=== PATIENT | female | born 1970 | race Caucasian/White ===

== ENCOUNTER 2017-12-02 07:17 | Emergency (ER) | payer OTHER, SELFPAY ==
[2017-12-02 07:18] VITALS: BP 149/85; PULSE 77; RESP 16; TEMP 36.6; O2SAT 100; BMI 33.2
--- NOTE | 2017-12-02 07:35 | ED.DCSUM_ITS ---
- ER Visit Summary Date of Service: 12/02/17 Chief Complaint: Vaginal bleeding History of Present Illness: The patient is a 47 F with a history of endometriosis and irregular menses. Patient states she has been bleeding for the past 2 weeks. Bleeding had tapered to just spotting for 2 days, but increased again yesterday to bleeding heavily and passing large clots. Patient believes she is gone through approximate 6 pads in the past 24 hours. She is having some lower abdominal cramping. She is scheduled to see Dr. Malone for [employer] follow-up on the . Past surgical history is significant for 2 C-sections and 2 prior laparoscopies for endometriosis. Physical Examination: Vital signs are unremarkable. Patient sitting upright in bed no acute distress. Head neck examination is normal. Heart is regular rate and rhythm. Lung sounds are clear. Abdomen is soft with no focal tenderness. Active bowel sounds are noted. Test Results: CBC reveals a hemoglobin 11.8. Chemistry studies normal. Serum test is negative. Transvaginal ultrasound shows multiple uterine fibroids. Sonographically normal endometrium is noted at 9 mm. There is a simple 3.3 similar left ovarian cyst. Emergency Department Course and Treatment: Patient was given Toradol and IV fluids. I spoke with Dr. Gooden, on-call for Dr. Malone. Patient is to receive Aygestin every 6 hours today and tomorrow. She will then follow-up with Dr. Malone on Monday. Treatment Plan: [] Disposition: Discharge Impression: Menorrhagia This note was generated with [employer] dictation software. It may contain incorrect words, spelling, and punctuation that were not noted in review of the chart prior to signing ED Disposition - Plan for ED Patient: Chief Complaint: Vag Bleeding Referrals: Jenna Atwood MD [Primary Care Provider] -
[2017-12-02 08:15] LABS: Absolute Lymphocyte Count 1.96 X10^3/ul (0.83-4.51); Basophil# 0.03 X10^3/uL; Basophil% 0.4 % (0-1); Eosinophil# 0.12 X10^3/uL; Eosinophils% 1.8 % (0-5); Hematocrit 36.4 % (37-47); Hemoglobin 11.8 g/dl (12.0-15.0); Lymphocyte # 1.96 X10^3/ul (4.0); Lymphocyte % 29.3 % (19-41); Mean Corp Hgb Conc 32.4 g/gl (32-36); Mean Corpuscular Hgb 29.9 pg (27.0-32.0); Mean Corpuscular Volume 92.4 fL (81-99); Mean Platelet Vol. 9.1 fl (6.2-12.0); Neutrophil # 3.99 X10^3/uL (2.7-7.7); Neutrophil % 59.5 % (47-70); Platelet Count 363 K/mm3 (150-450); RBC Distribution Width CV 13.3 % (11.6-14.6); RBC Distribution Width SD 44.5 fl (35.1-43.9); Red Blood Count 3.94 M/mm3 (4.2-5.4); White Blood Count 6.7 K/mm3 (4.4-11.0)
[2017-12-02 08:21] LABS: POSITIVE COUNT NO; POSITIVE DIFFERENTIAL NO; POSITIVE MORPHOLOGY NO
[2017-12-02 08:22] LABS: Anion Gap 8 (5-15); BUN 10 mg/dL (7-18); Calcium,Total 8.8 mg/dL (8.5-10.1); Chloride 107 mmol/L (98-107); Creatinine, Serum 0.66 mg/dL (0.55-1.02); EST Glomerular Filtration Rate 101 mL/min (>60); Est Glom Filt Rate - Afr Amer 122 mL/min (>60); Glucose 90 mg/dL (74-106); Potassium 3.6 mmol/L (3.5-5.1); Sodium Level 142 mmol/L (136-145)
[2017-12-02 08:36] LABS: Pregnancy, Serum, hCG Quali. NEGATIVE Negative (0-9 Nonpreg)
[2017-12-02] MEDS: 0.9% Normal Saline 1,000 ML 1000 ML IV (08:39)
[2017-12-02] MEDS: Ketorolac 30 MG/ML Syringe IV (08:39)
--- NOTE | 2017-12-02 09:27 | ED.DEP ---
ED Disposition - Plan for ED Patient: Disposition: Home or Assisted Living Chief Complaint: Vag Bleeding Instructions: ED Bleeding Menstrual Heavy Prescriptions: Norethindrone [Aygestin] 5 mg PO Q6H 2 Days #8 tablet Referrals: Diana Franoc MD [STAFF PHYSICIAN] - Keep Shauna appointment
[2017-12-02 09:44] VITALS: BP 128/78; PULSE 82; RESP 15; O2SAT 97
== END 2017-12-02 09:45 | disposition home or self-care (01) ==
PROVIDERS: Emergency Provider Emergency Medicine
DX: N92.0 Excessive and frequent menstruation with regular cycle (principal); D25.9 Leiomyoma of uterus, unspecified; N83.292 Other ovarian cyst, left side
CPT/HCPCS: 76830; 80048; 84703; 85025; 96361; 96374; 99284; J7030; A4216

== ENCOUNTER 2018-07-12 05:24 | Day surgery (SDC) | payer SELFPAY, OTHER ==
--- NOTE | 2018-07-09 07:59 | PCM.HP.BLA ---
History and Physical Date of Admission: 07/12/18 Lizett Moulton is a 47 year old female who presents for AUB. Pt was scheduled for EMB but due to stenotic cervix unable to obtain. Options for mgmt were reviewed. Pt would like to proceed with Hysteroscopy, D&C, Shelly ABLATION. Pt reports bleeding is regular every months and bleeds for 4-5 days but will pass large 50 cent piece size clots. Since starting herbal supplement has had some improvement but they are still heavy. Pt denies other concerns today. ? PAST?MEDICAL?HISTORY PAST MEDICAL HISTORY Diagnosis Date ? Endometriosis, site unspecified ? ? Endometriosis ? PAST?SURGICAL?HISTORY PAST SURGICAL HISTORY Procedure Laterality Date ? DELIVERY ONLY ? ? ? , low cervical ? DELIVERY ONLY ? ? ? , low cervical ? PAST SURGICAL HISTORY OF ? ? ? For the endometriosis ? REMOVAL OF TONSILS,<12 Y/O ? 1997 ? Tonsillectomy ? TUBAL LIGATION ? ? ? FAMILY?HISTORY FAMILY HISTORY Problem Relation Age of Onset ? None Father ? ? None Mother ? ? SOCIAL?HISTORY Social History Socioeconomic History Marital status: Spouse name: Not on file Number of children: 3 Years of education: Not on file Highest education level: Not on file Social Needs Financial resource strain: Not on file Food insecurity - worry: Not on file Food insecurity - inability: Not on file Transportation needs - medical: Not on file Transportation needs - non-medical: Not on file Occupational History Not on file Tobacco Use Smoking status: Never Smoker Smokeless tobacco: Never Used Substance and Sexual Activity Alcohol use: No Drug use: No Sexual activity: Yes Partners: Male control/protection: Other, None Other Topics Concerns: Not on file Social History Narrative Not on file ? CURRENT?MEDICATIONS ? Current Outpatient Medications: miSOPROStol (CYTOTEC) 200 mcg tablet Take two tablets PO night before procedure and two tablets morning of procedure ibuprofen (MOTRIN) 600 mg tablet Take 1 tablet by mouth every 6 hours as needed. FOR PAIN. HERBAL DRUGS ORAL Take by mouth. fibrablend miSOPROStol (CYTOTEC) 200 mcg tablet Take two tablets PO night before procedure and two tablets morning of procedure multivitamins(DAILY MULTIVITAMIN TAB) Take one(1) tablet daily. ? No current facility-administered medications for this visit. Allergies As of Date: 06/12/2018 Allergen Noted Reaction ENVIRONMENTAL [OTHER] 08/29/2007 ? Fully Assessed 06/12/2018 ? ? REVIEW OF SYSTEMS Abdomen: no pain Bladder: no dysuria .. Expanded ROS: GENERAL: Negative for fever Allergies and current medication updated:Yes ? EXAM: BP 120/74 Wt 168 lb (76.2kg) LMP 06/12/2018 GENERAL: pleasant, female in no apparent distress HEENT: Normocephalic, atraumatic, mucus membranes moist and no lesions NECK: Supple, full range of motion, no adenopathy and thyroid normal DERMATOLOGY: Normal, without lesions, non-icteric and non-hirsute CARDIAC: regular rate and rhythm CHEST: Normal inspiratory effort PELVIC: external genitalia normal, normal Bartholin's glands, urethra, [place]'s glands, no vulvar lesions, no cervical lesions, good vaginal support, physiologic discharge present, normal appearing perineal body and perianal region NEURO: alert and oriented x3,exam grossly non-focal EXTREMITIES: normal ULTRASOUND REVIEWED: uterus 10.4cm- three small fibroids all less than 2.5cm. No endometrial lesions. ? ASSESSMENT AND PLAN: Encounter Diagnosis ? ? ICD-10-CM ? 1. Pre-op testing Z01.818 HCG QUAL UR B/O 2. Abnormal uterine bleeding (AUB) N93.9 ENDOMETRIAL BIOPSY ? 3. MGMT options reviewed- would like to proceed with Hysteroscopy, D&C, Shelly ablation. PRE OP today done- Consent signed. 4. Pt has been counseled on risks/benefits and alternatives of surgery including but not limited to anesthesia, bleeding, infection, injury to pelvic structures including bowel, bladder, ureters and vessels. Pt wishes to proceed with surgery at this time. 5. Pt understands if Hyperplasia on D&C specimen will need to proceed with hysterectomy ? Diana Franco MD ?
[2018-07-12] VITALS (9 sets, daily range): BP systolic 96–133; BP diastolic 63–82; PULSE 65–77; RESP 14–16; TEMP 36.2–36.7; O2SAT 95–99; BMI 34.3
[2018-07-12 06:12] LABS: Hematocrit 39.1 % (37-47); Hemoglobin 12.6 g/dl (12.0-15.0); Mean Corp Hgb Conc 32.2 g/gl (32-36); Mean Corpuscular Hgb 29.4 pg (27.0-32.0); Mean Corpuscular Volume 91.1 fL (81-99); Mean Platelet Vol. 9.5 fl (6.2-12.0); Platelet Count 370 K/mm3 (150-450); RBC Distribution Width CV 13.5 % (11.6-14.6); RBC Distribution Width SD 44.1 fl (35.1-43.9); Red Blood Count 4.29 M/mm3 (4.2-5.4); White Blood Count 6.2 K/mm3 (4.4-11.0)
[2018-07-12 06:18] LABS: Scan Indicated on CBC? Y/N NO
--- NOTE | 2018-07-12 07:30 | EMB_PTH ---
PATIENT: ARMAND SHARPE LOC: [facility] [place] U#:[id number] AGE/SX: 47/F ROOM: RE07/12/[address]: Dr. Diana Franco, MDDOB: 1970 BED: DIS: 07/12/2018 SPEC #: [id number] RECD: 07/12/18 11:09 STATUS: TUTU RERosenda #: [id number] PAOLA: 07/12/18 07:[address]: Diana Franco DEPT: SURGICAL PATHOLOGY RECD BY: Chris Carpenter ENTERED: 07/12/18 13:00 SP TYPE: ENDOM BX/C OTHR DR: Dr. Jenna Atwood MD Tissues: Endometrium, NOS Procedures: Surgery Specimen Level IV HEADER OPERATION: Hysteroscopy, D & C, Shelly PRE-OP DIAGNOSIS: Abnormal uterine bleeding TISSUE SUBMITTED: Endometrial curettings MICROSCOPIC DIAGNOSIS Endometrial curettings: Endometrial polyp with simple and focal complex glandular pattern, negative for atypia. Weakly proliferative endometrium with glandular and stromal breakdown, eosinophilic syncytial change and tubal metaplasia. CE:tricia 07/13/18 MICROSCOPIC DESCRIPTION Slides are reviewed. GROSS DESCRIPTION Received in fixative is one container labeled with the patient's name and designated endometrial curettings. The specimen consists of multiple irregular fragments of reddish-pink soft tissue that in aggregate measure 1 x 1.5 x 0.5 cm. The specimen is totally submitted in two cassettes. / CE:tricia 07/12/18 TC:1 CPT: 12921
--- NOTE | 2018-07-12 07:30 | DCINST_ITS ---
Discharge Diet: No Restrictions Discharge Activity: Return to Normal Activity, May Shower, May Take a Tub Bath - in 2 weeks. May resume sexual activity in: 2 weeks Call your doctor if you observe: Fever of 101 or Higher, Using more than one pad per hour Allergies/Adverse Reactions: Allergies No Known Allergies Allergy (Verified 07/05/18 11:02) Medications to take at Discharge Multivitamin [Daily Multiple Vitamin] 1 each PO DAILY 12/02/17 Fibroblend 2 cap PO DAILY 07/05/18 Primary Care Physician: Jenna Atwood MD [Primary Care Provider] - Test Results: Test results from this visit will be discussed in further detail at your follow- up appointment, if applicable. Please Follow Up With: Diana Franco MD When: as scheduled 2 weeks
--- NOTE | 2018-07-12 08:03 | PCM.OPRPT ---
Report of Operation Date of Procedure: 07/12/18 Pre-Operative Diagnosis: AUB Post-Operative Diagnosis: AUB Surgery/Procedure Performed:: Hysteroscopy, D&C, Shelly Ablation Description of Surgical Findings:: Abundant Endometrial tissue. Possible Endometrial polyp. Type of Anesthesia:: MAC Specimen's removed: endometrial curettings Drains: none Estimated Blood Loss (mL): 5 Fluids Replaced: 800 Description of Procedure: After informed consent was obtained patient taken to the operating room she is placed in supine position she is given anesthesia simply self insert she is prepped draped normal sterile fashion. Bladder was drained prior to the start of the procedure. At this time the weighted speculum was placed the posterior fornix of the vagina then a single-tooth tenaculum was used to grasp the anterior lip of the cervix. At this time the uterus was sounded to approximately 8 cm the endocervical canal sounded to 3cm. Next cervix was dilated in incremental fashion. Once adequate dilatation was achieved the hysteroscope was inserted using normal saline as distention medium. On hysteroscopy there was abundant endometrial tissue and possible EM polyp. Difficult to see tubal ostia due to excess tissue but both cornua were noted At this time sharp curettage was performed which yielded large amount of endometrial tissue. tissue will be sent to pathology for evaluation. At this time the Shelly device was opened. The Shelly was set at 5 cm. The device was activated. Prior to activation the field test was performed and cavity was intact. The device was then fired and activated for 120 seconds. Once the 120 seconds was completed the device was removed intact and the tenaculum was removed. Good hemostasis was appreciated. Weighted speculum was removed. Vaginal sweep was performed is negative. There were no complications. Anticipated normal postoperative course for this patient. Instrument and lap count were correct ?2. Grafts/Implants Used: none - Complications none - Admit VTE Documentation VTE Present on Admission: Yes VTE Mechan Device Prophylaxis: SCD's VTE Pharm Prophylaxis ordered?: No
== END 2018-07-12 12:02 | disposition home or self-care (01) ==
LOC: SDC 05:25 → AC 05:27
PROVIDERS: Referring Provider Obstetrics & Gynecology; Visit Provider Obstetrics & Gynecology
PROC: 0U5B8ZZ Destruction of Endometrium, Via Natural or Artificial Opening Endoscopic (ICD-10-PCS; CPT 58558; principal; 2018-07-12 07:15)
DX: N84.0 Polyp of corpus uteri (principal); Z98.51 Tubal ligation status
CPT/HCPCS: 58563; 36415; 85027; 88305; J7120; J2405

== ENCOUNTER 2018-08-09 05:23 | Day surgery (SDC) | payer SELFPAY, OTHER ==
[2018-07-12 05:48] VITALS: BMI 34.3
--- NOTE | 2018-08-01 15:05 | PCM.HP.BLA ---
Problem List (1) Complex endometrial hyperplasia without atypia Status: Acute History and Physical Date of Admission: 08/09/18 Diana Malone Physician AUTOMATIC LOG CUT OFF SAWYER H&P Signed Encounter Date: 08/01/2018 Expand All Collapse All Hide copied text [place] for details Lizett Moulton is a 47 year old female who presents for Complex Endometrial hyperplasia w/o atypia dx on hysteroscopy D&C (s/p varinder ablation). Counseled patient that without treatment could progress to EM cancer- however since she had ablation recommendation is for hysterectomy as it can be difficult or impossible to sample tissue after. Pt was agreeable to this - decision for TLH, Bilateral salpingectomy. Pt reports has h/o endometriosis and had dx surgery performed years ago. Pt reports only minor bleeding since previous surgery. Pt denies CP, SOB, dizziness today. ? PAST?MEDICAL?HISTORY PAST MEDICAL HISTORY Diagnosis Date ? Endometriosis, site unspecified ? ? Endometriosis ? PAST?SURGICAL?HISTORY PAST SURGICAL HISTORY Procedure Laterality Date ? DELIVERY ONLY ? ? ? , low cervical ? DELIVERY ONLY ? ? ? , low cervical ? PAST SURGICAL HISTORY OF ? ? ? For the endometriosis ? REMOVAL OF TONSILS,<12 Y/O ? 1997 ? Tonsillectomy ? TUBAL LIGATION ? ? ? FAMILY?HISTORY FAMILY HISTORY Problem Relation Age of Onset ? None Father ? ? None Mother ? ? SOCIAL?HISTORY Social History Socioeconomic History Marital status: Spouse name: Not on file Number of children: 3 Years of education: Not on file Highest education level: Not on file Social Needs Financial resource strain: Not on file Food insecurity - worry: Not on file Food insecurity - inability: Not on file Transportation needs - medical: Not on file Transportation needs - non-medical: Not on file Occupational History Not on file Tobacco Use Smoking status: Never Smoker Smokeless tobacco: Never Used Substance and Sexual Activity Alcohol use: No Drug use: No Sexual activity: Yes Partners: Male control/protection: Other, None Other Topics Concerns: Not on file Social History Narrative Not on file ? CURRENT?MEDICATIONS ? Current Outpatient Medications: multivitamins(DAILY MULTIVITAMIN TAB) Take one(1) tablet daily. oxyCODONE-acetaminophen (PERCOCET) 5-325 mg tablet Take 1 tablet by mouth every 4 hours as needed for up to 20 days. ibuprofen (MOTRIN) 600 mg tablet Take 1 tablet by mouth every 6 hours as needed. FOR PAIN. docusate sodium (COLACE) 100 mg capsule Take 1 capsule by mouth twice daily. simethicone, chewable (MYLICON) 80 mg chewable tablet Take 1 tablet by mouth every 6 hours as needed. ibuprofen (MOTRIN) 600 mg tablet Take 1 tablet by mouth every 6 hours as needed. FOR PAIN. HERBAL DRUGS ORAL Take by mouth. fibrablend ? No current facility-administered medications for this visit. Allergies As of Date: 08/01/2018 Allergen Noted Reaction ENVIRONMENTAL [OTHER] 08/29/2007 ? Fully Assessed 08/01/2018 ? ? REVIEW OF SYSTEMS Abdomen: no pain Bladder: no dysuria.. Expanded ROS: GENERAL: No weight loss, malaise or fevers Allergies and current medication updated:Yes ? EXAM: BP 120/80 Wt 168 lb (76.2kg) ? GENERAL: pleasant, female in no apparent distress HEENT: Normocephalic, atraumatic, mucus membranes moist and no lesions NECK: full range of motion DERMATOLOGY: Normal, without lesions, non-icteric and non-hirsute CARDIAC: regular rate and rhythm CHEST: Clear to auscultation Normal inspiratory effort ABDOMEN: soft, non-tender and no masses PELVIC: deferred BIMANUAL: deferred NEURO: alert and oriented x3,exam grossly non-focal ? ASSESSMENT AND PLAN: Encounter Diagnosis ? ? ICD-10-CM ? 1. Post-op pain G89.18 oxyCODONE-acetaminophen (PERCOCET) 5-325 mg tablet ? 2. Pt has been counseled on risks/benefits and alternatives of surgery including but not limited to anesthesia, bleeding, infection, injury to pelvic structures including bowel, bladder, ureters and vessels. Pt wishes to proceed with surgery at this time. 3. Counseled patient possibility of EX lap. 4. Post op meds GIVEN 5. ERAS protocol reviewed- will plan dc home same day if no complications 6. Consent signed for TLH, Bilateral salpingectomy and cystoscopy ? Diana Franco MD ? ?
[2018-08-09] VITALS (9 sets, daily range): BP systolic 93–123; BP diastolic 60–73; PULSE 69–85; RESP 14–18; TEMP 36.1–36.5; O2SAT 92–97; BMI 34.7
[2018-08-09] MEDS: Gabapentin 600 MG Tablet PO (06:11)
[2018-08-09] MEDS: Enoxaparin 40 MG/0.4 ML Syringe SC (06:11)
[2018-08-09] MEDS: Celecoxib 200 MG Capsule 400 MG PO (06:11)
[2018-08-09] MEDS: Acetaminophen 500 MG Tablet 1000 MG PO (06:12)
[2018-08-09] MEDS: Scopolamine 1mg/72hr Patch 1 PATCH TRANSDERM. (06:12)
[2018-08-09] MEDS: Phenazopyridine 95 MG Tablet 190 MG PO (06:13)
[2018-08-09 06:20] LABS: Hematocrit 37.4 % (37-47); Hemoglobin 12.3 g/dl (12.0-15.0); Mean Corp Hgb Conc 32.9 g/gl (32-36); Mean Corpuscular Hgb 29.3 pg (27.0-32.0); Platelet Count 323 K/mm3 (150-450); RBC Distribution Width CV 13.5 % (11.6-14.6); RBC Distribution Width SD 43.9 fl (35.1-43.9); White Blood Count 7.5 K/mm3 (4.4-11.0)
[2018-08-09 06:21] LABS: Scan Indicated on CBC? Y/N NO
[2018-08-09 06:30] LABS: Anion Gap 6 (5-15); BUN 6 mg/dL (7-18); Calcium,Total 8.9 mg/dL (8.5-10.1); Chloride 107 mmol/L (98-107); EST Glomerular Filtration Rate 114 mL/min (>60); Est Glom Filt Rate - Afr Amer 137 mL/min (>60); Estimated Creatinine Clearance 142.55 ml/min; Glucose 64 mg/dL (74-106); Potassium 3.5 mmol/L (3.5-5.1); Sodium Level 143 mmol/L (136-145)
[2018-08-09] MEDS: Magnesium Sulfate 4gm/100mL 4 GM/100 ML IV.SOLN. IV (06:31)
[2018-08-09] MEDS: Lactated Ringers 1,000 ML 40 ML IV (06:32)
[2018-08-09 06:36] LABS: Bedside Glucose 60 mg/dL (70-110)
[2018-08-09] MEDS: Cefazolin 2 GM in 0.9% Normal Saline 100 ML IV (07:43)
[2018-08-09] MEDS: Lubricating Jelly 60 GM Tube 30 GM TOPICAL (07:49)
[2018-08-09] MEDS: Bupivacaine Mpf 0.5% 30 ML VIAL (07:55)
--- NOTE | 2018-08-09 08:58 | PCM.OPRPT ---
Problem List (1) Complex endometrial hyperplasia without atypia Status: Acute (2) Endometriosis Status: Acute (3) Pelvic adhesions Status: Acute Report of Operation Date of Procedure: 08/09/18 Pre-Operative Diagnosis: Complex endometrial hyperplasia w/o atypia Post-Operative Diagnosis: same, pelvic adhesions Surgery/Procedure Performed:: Diagnostic laparoscopy, Lysis of omental adhesions Description of Surgical Findings:: Omental adhesions to anterior abdominal wall. The adnexa are adherant to pelvic side wall with ureter seen peristalsis and traveling in to adhesion on right side wall. left pelvic side wall and bowel adherent- unable to visualize ureter. intraop consult by GEN SURGERY Dr. Joy agrees that this would be difficult dissection and would benefit from MIGS senior financial: Annabel Carson Type of Anesthesia:: General Special Medications: marcaine Specimen's removed: none Drains: none Estimated Blood Loss (mL): <5cc Description of Procedure: Patient taken to the operating room she was placed in the supine position. She was placed under general anesthesia. She was then prepped and draped in normal sterile fashion. At this time would expecta posterior [place] vagina cervix was tagged at 3 and 9:00 with a 0 Vicryl on UR 6 needle the rheostat assembler uterine manipulator was placed and sutured into place once it was secure then attention was turned to the abdominal portion. At this time a infraumbilical injection of Marcaine was placed to tell clamps are placed on either side of the umbilicus. Small incision was made with a knife. 5 mm trochars placed under direct visualization. Once proper placement was achieved CO2 gas was used to insufflate the intra-abdominal cavity. 2 lower quadrant ports were placed one in the left on the right again first injecting Marcaine making a small incision and then entering directly with the trocar under direct visualization. At this time omental adhesions were noted to the anterior abdominal wall these were taken down using the LigaSure. At this time then upon inspection of the uterus and the pelvic cavity the adnexa were completely adherent to the pelvic sidewalls. On the right the ovary and tube as well as the IP were adherent with the ureter coursing through the adhesion. The bowel was adherent to the left pelvic sidewall along with the ovary and IP. At this time I asked for Dr. Joy general surgery to come in for intraoperative consult he agrees that significant dissection would have to be performed and that the ureter is likely traversing into the adnexal adhesions. Decision at this time was to abort the procedure patient will see a minimally invasive gynecological specialist Dr. Adalid Erwin at [facility]. Patient's family was counseled on this and pictures were given to them so they can take it at time of consultation. Insert lap and needle count were correct x2. Patient transferred to recovery room in stable condition. Grafts/Implants Used: none - Complications procedure aborted due to adhesions - Admit VTE Documentation VTE Present on Admission: Yes VTE Mechan Device Prophylaxis: SCD's VTE Pharm Prophylaxis ordered?: Yes
--- NOTE | 2018-08-09 09:01 | OP.PCM_ITS ---
Problem List (1) Complex endometrial hyperplasia without atypia Status: Acute (2) Endometriosis Status: Acute (3) Pelvic adhesions Status: Acute Report of Operation Date of Procedure: 08/09/18 Pre-Operative Diagnosis: Complex endometrial hyperplasia w/o atypia Post-Operative Diagnosis: same, pelvic adhesions Surgery/Procedure Performed:: Diagnostic laparoscopy, Lysis of omental adhesions Description of Surgical Findings:: Omental adhesions to anterior abdominal wall. The adnexa are adherant to pelvic side wall with ureter seen peristalsis and traveling in to adhesion on right side wall. left pelvic side wall and bowel adherent- unable to visualize ureter. intraop consult by GEN SURGERY Dr. Joy agrees that this would be difficult dissection and would benefit from MIGS equipment oiler: Annabel Carson Type of Anesthesia:: General Special Medications: marcaine Specimen's removed: none Drains: none Estimated Blood Loss (mL): <5cc Description of Procedure: Patient taken to the operating room she was placed in the supine position. She was placed under general anesthesia. She was then prepped and draped in normal sterile fashion. At this time would expecta posterior [place] vagina cervix was tagged at 3 and 9:00 with a 0 Vicryl on UR 6 needle the family service caseworker uterine manipulator was placed and sutured into place once it was secure then attention was turned to the abdominal portion. At this time a infraumbilical injection of Marcaine was placed to tell clamps are placed on either side of the umbilicus. Small incision was made with a knife. 5 mm trochars placed under direct visualization. Once proper placement was achieved CO2 gas was used to insufflate the intra-abdominal cavity. 2 lower quadrant ports were placed one in the left on the right again first injecting Marcaine making a small incision and then entering directly with the trocar under direct visualization. At this time omental adhesions were noted to the anterior abdominal wall these were taken down using the LigaSure. At this time then upon inspection of the uterus and the pelvic cavity the adnexa were completely adherent to the pelvic sidewalls. On the right the ovary and tube as well as the IP were adherent with the ureter coursing through the adhesion. The bowel was adherent to the left pelvic sidewall along with the ovary and IP. At this time I asked for Dr. Joy general surgery to come in for intraoperative consult he agrees that significant dissection would have to be performed and that the ureter is likely traversing into the adnexal adhesions. Decision at this time was to abort the procedure patient will see a minimally invasive gynecological specialist Dr. Adalid Erwin at [facility]. Patient's family was counseled on this and pictures were given to them so they can take it at time of consultation. Insert lap and needle count were correct x2. Patient transferred to recovery room in stable condition. Grafts/Implants Used: none - Complications procedure aborted due to adhesions - Admit VTE Documentation VTE Present on Admission: Yes VTE Mechan Device Prophylaxis: SCD's VTE Pharm Prophylaxis ordered?: Yes
--- NOTE | 2018-08-09 11:08 | DCINST_ITS ---
Discharge Diet: No Restrictions, - - Increase fluid intake for 48 hours. Discharge Activity: Return to Normal Activity, May Drive - when you are no longer taking narcotic pain medications., May Shower, May Take a Tub Bath - in 7 days., - - Ambulate often the next week after surgery. May shower in (days): 1 May resume sexual activity in: 2 weeks Lifting Restrictions: 20 Additional Activity Instructions:: Nothing in the vagina for the next 7 days Call your doctor if your incision/area has: Continuous Slow Oozing, Sudden Increased Bleeding, Increased Pain/ Swelling, Increased Redness, Foul Smelling Discharge, Swelling at the incision site Call your doctor if you observe: Fever of 101 or Higher Cleanse incision/area with: - - do not pick off skin glue- you may shower and let soap and water run over incision sites- dab dry. Allergies/Adverse Reactions: Allergies No Known Allergies Allergy (Verified 08/02/18 09:54) Medications to take at Discharge Multivitamin [Daily Multiple Vitamin] 1 each PO DAILY 12/02/17 Aloe Vera 50 - 75 mg PO DAILY 08/02/18 Primary Care Physician: Jenna Atwood MD [Primary Care Provider] - Test Results: Test results from this visit will be discussed in further detail at your follow- up appointment, if applicable.
== END 2018-08-09 13:18 | disposition home or self-care (01) ==
LOC: SDC 05:25 → AC 05:26
PROVIDERS: Referring Provider Obstetrics & Gynecology; Visit Provider Obstetrics & Gynecology
PROC: 0UT94ZZ Resection of Uterus, Percutaneous Endoscopic Approach (ICD-10-PCS; CPT 49320; principal; 2018-08-09 07:10)
DX: N85.01 Benign endometrial hyperplasia (principal); Z53.09 Procedure and treatment not carried out because of other contraindication; N73.6 Female pelvic peritoneal adhesions (postinfective); G89.18 Other acute postprocedural pain; Z79.899 Other long term (current) drug therapy
CPT/HCPCS: 49320; 36415; 80048; 82962; 85027; 86850; 86900; J7120; J2405; J3490

== ENCOUNTER 2018-10-11 07:12 | Emergency (ER) | payer OTHER, SELFPAY ==
[2018-08-09 05:58] VITALS: BMI 34.7
[2018-10-11 07:12] VITALS: BP 115/75; PULSE 105; RESP 18; TEMP 37.9; O2SAT 97; BMI 32.3
--- NOTE | 2018-10-11 07:24 | EKG12_ITS ---
Test Reason : DYSRHYTHMIA Blood Pressure : / mmHG Vent. Rate : 100 BPM Atrial Rate : 100 BPM P-R Int : 120 ms QRS Dur : 078 ms QT Int : 332 ms P-R-T Axes : 054 055 041 degrees QTc Int : 428 ms Normal sinus rhythm Normal ECG Confirmed by SANDRA MARTINEZ, BHUPENDRA ([id number]), editor at large RUBY SHARMA ([id number]) on 10/15/2018 1:33:57 PM Referred By: HETAL Confirmed By:BHUPENDRA FLORES MD
--- NOTE | 2018-10-11 07:25 | CT_ITS ---
STUDY: CT ABDOMEN AND PELVIS WITH CONTRAST REASON FOR EXAM: Female, 47 years old. Hysterectomy 3 weeks ago. Received 6 units are blocked due to vascular injury, colostomy due to bowel perforation from adhesions, fever. RADIATION DOSAGE (If Supplied By Facility): CTDIvol = ( 16.51 ) mGy, DLP = ( 928.32 ) mGycm TECHNIQUE: Transaxial images were obtained from the dome of the diaphragm to the symphysis pubis without oral contrast. 100 IV/Oral Isovue 300 was administered. Sagittal and coronal images were reconstructed. Individualized dose optimization techniques were used for this CT. COMPARISON: None. FINDINGS: The visualized lung bases are unremarkable. The visualized portions of the heart are within normal limits. Normal liver. There are multiple gallstones in a distended gallbladder with indistinct contour, wall enhancement, possible cystic duct calculus. There is no intra or extrahepatic biliary ductal dilatation or choledocholithiasis. Normal spleen. Normal pancreas. Normal bilateral adrenal glands. Normal right kidney. Normal left kidney. There is no obstructive uropathy, obstructive renal or ureteral calculi. There is minimal stranding of the distal ureters in the pelvis along the surgical sites. Normal visualized stomach. Mild nonobstructive small bowel ileus.. Indeterminate wall of the distal rectosigmoid colon. The appendix is visualized and appears normal. Normal abdominal aorta. Normal inferior vena cava. There are nonenlarged indistinct retroperitoneal lymph nodes. There is a peripherally enhancing cystic collection anterior to the sacrum and midline measuring 3.7 x 4.1 x 5.9 cm with indistinct contour and fat stranding.. There is an adjacent midline cortical defect in the anterior aspect for vertebral body 0.3 cm which is sharply delineated. There is right para midline sacral hardware at the S1-3-4 level. Normal urinary bladder. There is absence of the uterus consistent with a prior hysterectomy. There is low attenuation of the ovaries most frequently due to follicular cysts. There is mesenteric fat stranding in the cul-de-sac and pelvis with indistinct contour of the rectosigmoid colon, adnexa, distal ureters. There is mild peripheral enhancement of the right ovarian vein proximally with central low attenuation. There is a peripherally enhancing right distal internal iliac vein with low attenuation lumen image [id number] series 2 with more homogeneous enhancement of the contralateral venous branches. There are abdominal wall postsurgical changes. Right abdominal ileostomy.. Normal osseous structures. CT/Abdomen/Pelvis WITH Contrast IMPRESSION: 1. Abnormal gallbladder with cholelithiasis, distention, wall enhancement, indistinct contour, possible cystic duct calculus. Acute cholecystitis may be present. 2. Infiltrative changes at the surgical site with indistinct contour of adjacent anatomy including ovaries, rectosigmoid colon, urinary bladder. A primary colitis is not entirely excluded but more doubtful. 3. Collection in the deep pelvis anterior to the sacrum with postsurgical changes in the right para midline sacrum as above and sharply delineated cortical defect which may be surgical in nature. No osseous destruction to suggest osteomyelitis detected. 4. Central low-attenuation with peripheral enhancement involving the right internal iliac vein may represent thrombosis or phlebitis. 5. Similar findings seen in the proximal right ovarian vein, the distal ovarian vein demonstrated no peripheral enhancement, the left ovarian vein is not enhancing and cannot be utilized for comparison. There is no dilatation of the lumen to suggest venous thrombosis. 6. Indistinct retroperitoneal lymph nodes likely sequela from previous postsurgical course. 7. Mild small bowel ileus. 8. No evidence of appendicitis, colonic or small bowel obstruction. These findings were discussed on the telephone with Dr. Fishman at 1020 hrs. EST on 10/11/2018. Electronically Signed: Elizabeth Hendrickson MD at 10:29 EDT , Service support ,
--- NOTE | 2018-10-11 07:30 | RAD_ITS ---
STUDY: X-RAY CHEST REASON FOR EXAM: Female, 47 years old. Post femur TECHNIQUE: Single AP portable view of the chest. COMPARISON: None. FINDINGS: The lungs are clear and expanded. There is no demonstrated pleural abnormality. Normal size heart. Normal mediastinum and robbie. Normal visualized pulmonary arteries. Normal visualized aortic arch and descending thoracic aorta. Normal visualized thoracic spine. Normal visualized ribs, clavicles, and shoulders. There is no demonstrated abnormality of the visualized soft tissue structures of the upper abdomen. RAD/Chest 1 View (Portable) IMPRESSION: Normal x-ray examination of the chest. Electronically Signed: Elizabeth Hendrickson MD at 7:56 EDT , Service support ,
--- NOTE | 2018-10-11 07:32 | NURSING ---
NO OLD EKGS
--- NOTE | 2018-10-11 07:33 | ED.DCSUM_ITS ---
History of Present Illness Chief Complaint: Fever Informant: Patient, Family Onset: Today Context: Sudden Onset Timing: Continuous Quality: Temperature 101.8 ?F Location: Not applicable Current Severity: Mild Maximum Severity: Moderate Worsened by: Unknown Relieved by: Better with Tylenol Associated Symptoms: None Narrative: Patient is a 47-year-old woman who was scheduled for a laparoscopic hysterectomy with bilateral salpingo-oophorectomy on August 09. Incision was made and patient was closed because of scarring/adhesions. She had surgery 23 days ago at [facility]. Surgery was complicated by bowel perforation and vascular injury. Patient did not receive antibiotics after surgery. Patient required 6 units of blood. Today is the first day that she has had a fever. She denies respiratory symptoms. She denies GI symptoms. She denies urologic symptoms. She denies drainage or rash at incision site or ostomy site. states they contacted the visiting nurse who recommended evaluation in light of her operative and postoperative complications. Prior similar symptoms: No Recent Illness/Hospitalization: Yes - Past Medical History (1) Complex endometrial hyperplasia without atypia Status: Acute (2) Pelvic adhesions Status: Acute Past Medical History - Allergies and Home Meds Allergies/Adverse Reactions: Allergies No Known Allergies Allergy (Verified 10/11/18 07:15) Primary Care Physician: Jenna Atwood MD [Primary Care Provider] - Surgical History: hysterectomy, - - Colostomy Lives: Spouse/ Significant Other, With Family Smoking Status: Never smoker Alcohol: None Review of Systems General: Reports: Chills, Fever, Malaise. Denies: Subjective, Sweats, Weight loss Eyes: Denies: Visual changes - bilaterally, Diplopia ENT: Denies: Bilateral ear pain, Rhinorrhea, Sore throat Cardiovascular: Denies: Chest pain, Palpitations, Heart racing Respiratory: Denies: Dyspnea, Cough, Dyspnea on exertion Gastrointestinal: Reports: - - Patient denies increased or decreased output from colostomy. She has not noted any blood or mucus. There is no change in color or consistency.. Denies: Abdominal pain, Nausea, Vomiting, Diarrhea, Melena, Hematochezia Genitourinary: Denies: Dysuria, Hematuria, Frequency Musculoskeletal: Denies: Back pain, Extremity Pain Skin: Denies: Rash, Wounds Neurological: Denies: Headache, Weakness, Numbness Endocrine: Denies: Polyuria, Polydipsia Hematologic: Denies: Easy bruising, Easy bleeding Allergy: Denies: Uticaria, Swelling of the mouth, Swelling of the tongue Physical Exam Vital Signs/Narrative: Vital Signs Temp Pulse Resp BP Pulse Ox 10/11/18 07:12 100.2 F H 105 H 18 115/75 97 Inital Vital Signs reviewed: Yes General: Well nourished, Well developed, Obese, No Acute Distress Head: Normocephalic, Atraumatic Eyes: Perrl, EOMI. Negative for: Pale conjunctiva, Scleral icterus, - ENT: No rhinorrhea, TM's clear, Dry mucous membranes Neck: Supple, Nontender, No lymphadenopathy, No JVD, - Cardiovascular: Regular rhythm, No murmurs, Normal S1, Normal S2, Tachycardia Respiratory: No distress, CTA bilaterally, Chest nontender Abdomen: Soft, Nondistended, No masses, Tender - Lateral colostomy, Hypoactive bowel sounds, Mass, - - Incision is intact without erythema, warmth, fluctuance or induration.. Negative for: Guarding, Rebound tenderness, Hepatomegaly, Splenomegaly Rectal: Deferred Back: Nontender, Normal Inspection Extremities: Nontender, No edema Skin: No rash, No Trauma, Pallor. Negative for: Cyanosis, Diaphoresis, Jaundice Neurological: Alert, Oriented x3, Cranial nerves II-XII grossly intact, Normal Strength, Normal Sensation, Normal Gait Psychological: Normal affect, Normal Mood Diagnostic/Tx/Re-eval Chest X-Ray - ED: 1 View, Read by ED Physician, Normal, Heart, Lungs, Mediastinum, Bony Structures, No Acute Disease, Chronic Changes, - - There is no free air under the diaphragm. Interpretation of x-ray 0744 Impressions Abdomen/Pelvis CT 10/11/18 07:25 IMPRESSION: 1. Abnormal gallbladder with cholelithiasis, distention, wall enhancement, indistinct contour, possible cystic duct calculus. Acute cholecystitis may be present. 2. Infiltrative changes at the surgical site with indistinct contour of adjacent anatomy including ovaries, rectosigmoid colon, urinary bladder. A primary colitis is not entirely excluded but more doubtful. 3. Collection in the deep pelvis anterior to the sacrum with postsurgical changes in the right para midline sacrum as above and sharply delineated cortical defect which may be surgical in nature. No osseous destruction to suggest osteomyelitis detected. 4. Central low-attenuation with peripheral enhancement involving the right internal iliac vein may represent thrombosis or phlebitis. 5. Similar findings seen in the proximal right ovarian vein, the distal ovarian vein demonstrated no peripheral enhancement, the left ovarian vein is not enhancing and cannot be utilized for comparison. There is no dilatation of the lumen to suggest venous thrombosis. 6. Indistinct retroperitoneal lymph nodes likely sequela from previous postsurgical course. 7. Mild small bowel ileus. 8. No evidence of appendicitis, colonic or small bowel obstruction. These findings were discussed on the telephone with Dr. Fishman at 1020 hrs. EST on 10/11/2018. Electronically Signed: Elizabeth Hendrickson MD at 10:29 EDT , Service support , Chest X-Ray 10/11/18 07:30 IMPRESSION: Normal x-ray examination of the chest. Electronically Signed: Elizabeth Hendrickson MD at 7:56 EDT , Service support , 10/11/18 07:25 Abdomen/Pelvis WITH Contrast [CT] Stat 10/11/18 07:30 Chest 1 View (Portable) [RAD] Stat 10/11/18 10:18 Gallbladder [US] Stat Laboratory Results 10/11/18 10/11/18 10/11/18 07:50 07:56 07:56 WBC 13.5 H RBC 3.79 L Hgb 10.8 L Hct 33.3 L MCV 87.9 MCH 28.5 MCHC 32.4 RDW 13.7 RDW Differential 41.9 Plt Count 465 H MPV 9.2 Immature Gran % (Auto) 0.200 Neut % (Auto) 73.3 H Lymph % (Auto) 14.9 L [place] % (Auto) 10.1 H Eos % (Auto) 1.1 Baso % (Auto) 0.4 Absolute Neuts (auto) 9.9 H Absolute Lymphs (auto) 2.01 Total Counted Not Reportable PT 14.8 INR 1.2 APTT 28.7 Sodium Potassium Chloride Carbon Dioxide Anion Gap BUN Creatinine Estim Creat Clear Calc Est GFR (MDRD) Af Amer Est GFR (MDRD) Non-Af BUN/Creatinine Ratio Glucose Lactic Acid Calcium Total Bilirubin AST ALT Alkaline Phosphatase Total Protein Albumin Globulin Albumin/Globulin Ratio Lipase Urine Color Yellow Urine Clarity Clear Urine pH 7.0 Ur Specific [place] 1.005 Urine Protein Negative Urine Glucose (UA) Normal Urine Ketones Negative Urine Occult Blood Negative Urine Nitrite Negative Urine Bilirubin Negative Urine Urobilinogen Normal Ur Leukocyte Esterase Negative Urine RBC 0 SEEN Urine WBC 0-5 SEEN Ur Squamous Epith Cells 5-10 SEEN Urine Bacteria 0 SEEN Urine Mucus 0 SEEN 10/11/18 10/11/18 10/11/18 07:56 07:56 07:56 WBC RBC Hgb Hct MCV MCH MCHC RDW RDW Differential Plt Count MPV Immature Gran % (Auto) Neut % (Auto) Lymph % (Auto) [place] % (Auto) Eos % (Auto) Baso % (Auto) Absolute Neuts (auto) Absolute Lymphs (auto) Total Counted PT INR APTT Sodium 136 Potassium 3.7 Chloride 102 Carbon Dioxide 28.0 Anion Gap 6 BUN 9 Creatinine 0.62 Estim Creat Clear Calc 128.52 Est GFR (MDRD) Af Amer 131 Est GFR (MDRD) Non-Af 109 BUN/Creatinine Ratio 14.4 Glucose 93 Lactic Acid 1.1 Calcium 9.1 Total Bilirubin 0.50 AST 19 ALT 36 Alkaline Phosphatase 94 Total Protein 8.1 Albumin 3.6 Globulin 4.5 H Albumin/Globulin Ratio 0.8 L Lipase 73 Urine Color Urine Clarity Urine pH Ur Specific [place] Urine Protein Urine Glucose (UA) Urine Ketones Urine Occult Blood Urine Nitrite Urine Bilirubin Urine Urobilinogen Ur Leukocyte Esterase Urine RBC Urine WBC Ur Squamous Epith Cells Urine Bacteria Urine Mucus Ultrasound was obtained to assess the gallbladder and cystic duct. Doubt retained stone in the cystic duct since liver enzymes are normal. She did rece sri 4.[address] Samuel Garner who is the general surgeon on-call for [facility] was contacted. He reviewed her records from the outside facility, [facility]. He recommended transfer back to [facility]. Patient, and family were made aware. The transfer line for [facility] was paged by legal secretary and will speak with general surgeon on-call. - Rhythm Strip Rhythm Strip: Sinus Tach Rate: 103 - EKG Initial EKG Interpretation: Sinus Rhythm - Ventricular rate is 100. NV interval is 120 ms. QRS duration is 78 ms. QT is 332 ms. [place] is normal. The EKG is normal. - Medical Decision Making With history of bowel perforation and vascular injury CT of the abdomen and pelvis was obtained with IV and p.o. contrast to evaluate for abscess and possible anastomosis leakage. Chest x-ray was obtained to evaluate for pneumonia even though patient had no complaints. UA was obtained to assess for urinary tract infection. CBC was obtained to assess white count as well as H&H since patient appears pale and history of significant intraoperative bleeding requiring 6 units of blood. Cultures were obtained. Antibiotics were held until laboratory bodies are available for review and CAT scan to determine appropriate antibiotic coverage. Plan is to transfer to larger facility. Since she had surgery 23 days ago at [facility] the transfer line was contacted for transfer and specifically general surgeon hotel recreational facilities manager. Patient was discussed with Dr. Manzo who is the general surgeon on-call at [facility]. He has accepted patient and she will be a direct admit. ED Disposition - Plan for ED Patient: Diagnosis: Cholecystitis with cholelithiasis, Sepsis, Sinus tachycardia seen on surveillance system monitor, Pelvic fluid collection Referrals: Jenna Atwood MD [Primary Care Provider] -
[2018-10-11 08:11] LABS: Bacteria 0 SEEN /hpf (None Seen); Mucous, Urine 0 SEEN /hpf (<or=2+); Red Blood Cells-Urine 0 SEEN /hpf (0-5)
[2018-10-11 08:16] LABS: Absolute Lymphocyte Count 2.01 X10^3/ul (0.83-4.51); Absolute Neutrophil Count 9.9 X10^3/uL (2.0-7.7); Basophil# 0.05 X10^3/uL; Basophil% 0.4 % (0-1); Eosinophil# 0.15 X10^3/uL; Eosinophils% 1.1 % (0-5); Hematocrit 33.3 % (37-47); Hemoglobin 10.8 g/dl (12.0-15.0); Lymphocyte # 2.01 X10^3/ul (4.0); Lymphocyte % 14.9 % (19-41); Mean Corp Hgb Conc 32.4 g/gl (32-36); Mean Corpuscular Hgb 28.5 pg (27.0-32.0); Mean Corpuscular Volume 87.9 fL (81-99); Mean Platelet Vol. 9.2 fl (6.2-12.0); Monocyte# 1.36 X10^3/uL; Monocyte% 10.1 % (0-10); Neutrophil # 9.86 X10^3/uL (2.7-7.7); Neutrophil % 73.3 % (47-70); Platelet Count 465 K/mm3 (150-450); RBC Distribution Width CV 13.7 % (11.6-14.6); RBC Distribution Width SD 41.9 fl (35.1-43.9); Red Blood Count 3.79 M/mm3 (4.2-5.4); White Blood Count 13.5 K/mm3 (4.4-11.0)
[2018-10-11 08:17] VITALS: BP 121/78; PULSE 97; RESP 14; TEMP 37.9; O2SAT 100
[2018-10-11 08:19] LABS: POSITIVE COUNT NO; POSITIVE DIFFERENTIAL NO; POSITIVE MORPHOLOGY NO
[2018-10-11 08:23] LABS: Color, Urine Yellow (Yellow); Glucose, Dipstick Normal (Normal); Ketone-Dipstick Negative (Negative); Leukocyte Esterase-Dipstick Negative /ul (Negative); Nitrite-Dipstick Negative (Negative); Occult Blood-Urine Negative /ul (Negative); Protein-Dipstick Negative (Negative); Specific Gravity, Urine 1.005 (1.002-1.030); Urine Bilirubin Dipstick Negative (Negative); Urine Clarity Clear (Clear); Urine Urobilinogen Normal (Normal)
[2018-10-11 08:28] LABS: ALB/GLOB Ratio 0.8 RATIO (0.9-2.4); AST(SGOT) 19 U/L (15-37); Alanine Aminotransfer ALT/SGPT 36 U/L (13-56); Albumin, Serum 3.6 g/dL (3.2-5.0); Alkaline Phosphatase 94 U/L (45-117); Anion Gap 6 (5-15); BUN 9 mg/dL (7-18); BUN/Creat Ratio 14.4 RATIO (10-20); Calcium,Total 9.1 mg/dL (8.5-10.1); Chloride 102 mmol/L (98-107); Creatinine, Serum 0.62 mg/dL (0.55-1.02); EST Glomerular Filtration Rate 109 mL/min (>60); Est Glom Filt Rate - Afr Amer 131 mL/min (>60); Estimated Creatinine Clearance 128.52 ml/min; Globulin 4.5 g/dL (2.2-4.2); Glucose 93 mg/dL (74-106); Potassium 3.7 mmol/L (3.5-5.1); Protein, Total 8.1 g/dL (6.4-8.2); Sodium Level 136 mmol/L (136-145)
[2018-10-11 08:33] LABS: International Normalized Ratio 1.2; Partial Thromboplast Time 28.7 Seconds (24.1-36.2); Prothrombin Time (Protime)PT. 14.8 SECONDS (11.7-14.9)
[2018-10-11 08:37] LABS: Squamous Epithelial Cells - UA 5-10 SEEN /hpf (5-10); White Blood Cells 0-5 SEEN /hpf (0-5)
--- NOTE | 2018-10-11 08:38 | ED.RN ---
ATTEMPT AT IV IN RAC. UNSUCCESSFUL.
[2018-10-11 08:43] LABS: Lactic Acid 1.1 mmol/L (0.4-2.0)
[2018-10-11] MEDS: 0.9% Normal Saline 1,000 ML 250 ML IV (09:10)
[2018-10-11 09:16] VITALS: BP 113/73; PULSE 96; RESP 19; TEMP 37.2; O2SAT 100
--- NOTE | 2018-10-11 09:17 | ED.RN ---
RT BRACHIAL VEIN ACCESSED ITH #20 LONG ANGIO UNDER ULTRASOUND VISUALIZATION. PT TOLERATED WELL. SECOND BLOOD CULTURES OBTAINED. FLUSHES EASILY
--- NOTE | 2018-10-11 09:50 | NURSING ---
DR ASKEW PAGEBrent
[2018-10-11 10:01] LABS: Lipase 73 U/L (73-393)
--- NOTE | 2018-10-11 10:18 | US_ITS ---
STUDY: ABDOMINAL ULTRASOUND - RIGHT UPPER QUADRANT REASON FOR VISIT: Female, 47 years old. Gallstones fever. Leukocytosis. TECHNIQUE: Ultrasound evaluation of the right upper quadrant was performed with real-time and static matute-scale imaging. TECHNICAL QUALITY: Adequate. COMPARISON: CT scan from the same day. FINDINGS: Liver: The liver measures 14.6 cm. There is normal echogenicity of the liver. The bile ducts are within normal limits. There is hepatic color flow. The direction of portal flow is hepatopetal. There is no demonstrated mass lesion. Gallbladder: Distended gallbladder. Multiple gallstones measuring up to 2.3 cm. Positive sonographic White's sign. Mild wall thickening measuring up to 4 mm. No pericholecystic fluid. Common Bile Duct (C.B.D.): The common bile duct measures 5.2 mm. Pancreas: Normal size of the head, body and tail of the pancreas. There is normal echogenicity of the pancreas. There is no demonstrated pancreatic mass or cyst. Right Kidney: Normal size of the right kidney. The right kidney measures 11.6 cm. Normal renal cortex. The right cortex measures 1.2 cm. There is no demonstrated renal mass or cyst. There is no right hydronephrosis. US/Gallbladder IMPRESSION: Distended gallbladder, multiple gallstones, gallbladder wall thickening and positive sonographic White's concerning for acute cholecystitis Electronically Signed: Ed Hutchison DO at 12:48 EDT Tel , Service support ,
[2018-10-11 10:38] VITALS: BP 125/81; PULSE 101; RESP 15; TEMP 37.4; O2SAT 98
--- NOTE | 2018-10-11 10:49 | NURSING ---
CALLED [facility] ABOUT TRANSFER. TALKED TO MARYA. FAXED FACESHEET
--- NOTE | 2018-10-11 11:25 | NURSING ---
SHERYL [id number] BED 1 REPORT [phone]
[2018-10-11 11:32] VITALS: BP 121/79; PULSE 98; RESP 19; TEMP 37.2; O2SAT 100
--- NOTE | 2018-10-11 11:34 | NURSING ---
CALLED [facility] FOR TRANSPORT
[2018-10-11 12:22] VITALS: BP 121/79; PULSE 98; RESP 19; TEMP 37.2; O2SAT 100
[2018-10-11] MEDS: HYDROmorphone 0.5 MG/0.5 ML SYRINGE IV (12:29)
== END 2018-10-11 13:01 | disposition short-term general hospital (02) ==
LOC: ED 07:33
PROVIDERS: Emergency Provider Emergency Medicine
DX: K80.00 Calculus of gallbladder with acute cholecystitis without obstruction (principal); A41.9 Sepsis, unspecified organism; R00.0 Tachycardia, unspecified; R19.00 Intra-abdominal and pelvic swelling, mass and lump, unspecified site; Z90.710 Acquired absence of both cervix and uterus; Z93.3 Colostomy status
CPT/HCPCS: 71045; 74177; 76705; 80053; 81001; 83605; 83690; 85025; 85610; 85730; 87040; 87086; 87088; 93005; 96365; 96374; 96375; 99285; J7030; Q9967; A4216